=== PATIENT | female | born 1985 | race African-American/Black ===

== ENCOUNTER 2016-05-24 10:13 | Emergency (ER) | payer MEDICAID ==
[~2016-05-24] VITALS: Ht 167.6 cm; Wt 80.0 kg
[~2016-05-24 10:13] MED LIST: CEPH500C3 PO; PROM25TA5 PO; ZOFR4TAB3 SL
[2016-05-24 10:14] VITALS: BP 131/76; PULSE 99; RESP 16; TEMP 98.3; O2SAT 99
[2016-05-24] MEDS ORDERED: IBUP800T23 PO (11:03)
[2016-05-24] MEDS ORDERED: AMOX500T PO (11:03)
[2016-05-24] MEDS ORDERED: MAGICADU2 SWISH-SPIT (11:03)
--- NOTE | 2016-05-24 11:03 | PD ---
HPI Chief Complaint: Cold / Flu Symptoms Time Seen by Provider: 11:01 Travel History International Travel<30 days: No Contact w/Intl Traveler<30days: No Traveled to known affect area: No History of Present Illness HPI 31-year-old female presents to the emergency Department with complaint of sore throat, headache, body aches since yesterday. Denies lump in throat, difficulty swallowing, unusual drooling. Reports painful swallowing. Reports subjective fever yesterday. Has not taken her temperature and cannot reported MAXIMUM TEMPERATURE. Denies cough, ear pain, nasal congestion. Denies nausea, vomiting, abdominal pain. Her children have similar symptoms. Has not taken any medications or tried any treatments to alleviate her symptoms. Received the influenza vaccine this year. No known relieving factors. Denies allergies. Does not know the name of her primary care provider. Denies significant past medical history. No other modifying factors or associated signs and symptoms. PFSH Past Medical History Diminished Hearing: No Immunizations Current: No ?: Not LMP: 04/2016 : 7 Para: 5 : 1 Social History Alcohol Use: No Tobacco Use: No Substance Use: No Allergies-Medications (Allergen,Severity, Reaction): Coded Allergies: No Known Allergies (Unverified , 05/24/16) Reported Meds & Prescriptions Reported Meds & Active Scripts Active Ibuprofen 800 Mg Tab 800 Mg PO Q6HR PRN Amoxicillin 500 Mg Tab 500 Mg PO BID 10 Days Magic Mouthwash Adult Liq (Multi-Ingredient Mouthwash/Gargle) 120 Ml Susp 5 Ml SWISH-SPIT Q3HR PRN Each 5mL contains: Nystatin 200,000units, Diphenhydramine 4.25mg, Viscous Lidocaine 10mg, Corey syrup 0.8 mL Review of Systems Except as stated in HPI: all other systems reviewed are Neg Physical Exam Narrative GENERAL: Well-nourished, well-developed female patient, in no acute distress; afebrile, nontoxic-appearing SKIN: Warm and dry. No rash. HEAD: Atraumatic. Normocephalic. EYES: Pupils equal and round at 3 mm with brisk reaction. No scleral icterus. No injection or drainage. PERRLA. ENT: Mucosa pink and dry. Pharynx with 2+ tonsils; with erythema, exudate, and edema. No Uvular edema. No uvular, palatal, or tonsillar deviation. Airway patent. Voice is hoarse. EARS: Bilateral pinnae and external canals appear within normal limits. Bilateral tympanic membranes without erythema, dullness or perforation.. NECK: Trachea midline. Anterior cervical lymphadenopathy and tenderness. CARDIOVASCULAR: Regular rate and rhythm. No murmur appreciated. RESPIRATORY: No accessory muscle use. Clear to auscultation. Breath sounds equal bilaterally. GASTROINTESTINAL: Abdomen soft, non-tender, nondistended. Hepatic and splenic margins not palpable. Bowel sounds are active 4 quadrants. MUSCULOSKELETAL: No obvious deformities. No clubbing. No cyanosis. No edema. NEUROLOGICAL: Awake and alert. Oriented 3. No obvious cranial nerve deficits. Motor grossly within normal limits. Normal speech. Moves all extremities. PSYCHIATRIC: Appropriate mood and affect; insight and judgment normal. Data Data Last Documented VS Vital Signs Date Time Temp Pulse Resp B/P Pulse Ox O2 Delivery O2 Flow Rate FiO2 05/24/16 10:35 20 05/24/16 10:14 98.3 99 131/76 99 MDM Medical Decision Making Medical Screen Exam Complete: Yes Emergency Medical Condition: Yes Medical Record Reviewed: Yes Differential Diagnosis Strep pharyngitis, viral pharyngitis, less likely peritonsillar abscess Narrative Course 31-year-old female who exam consistent with exudative pharyngitis. Denies lump in throat, difficulty swallowing, unusual drooling. Oropharynx is with erythema , edema, and exudate. Patient will be provided a prescription for amoxicillin and discharged home. I offered the patient a nonnarcotic for pain while in the ER and she declined this time. Amoxicillin, Magic mouthwash, ibuprofen prescribed for home. Patient is medically cleared and stable for discharge. Discussed reasons to return to the emergency department. Instructed patient to follow up with primary care provider. Patient agrees with treatment plan. The patients vital signs are stable and the patient is stable for outpatient follow- up and treatment. Patient discharged home, stable and in no acute distress. Diagnosis Primary Impression: Exudative pharyngitis Referrals: Primary Care Physician Patient Instructions: General Instructions, Pharyngitis (ED) Departure Forms: Tests/Procedures, Work Release Enter return to work date: May 26, 2016 Additional Instructions: Take Antibiotics as prescribed and complete full course of antibiotics Get plenty of sleep/rest Rest your voice Drink plenty of fluids to prevent dehydration Use warm saltwater gargles to soothe throat pain Use an air humidifier/turn off ceiling fans Use throat lozenges as needed for sore throat Use ibuprofen or acetaminophen as needed to relieve pain and fever Follow-up with your primary care provider within 2-4 days Return immediately to the emergency department immediately with worsening of symptoms Med/Other Pt SpecificInfo: Prescription(s) given Scripts Ibuprofen 800 Mg [id number] Mg PO Q6HR PRN (PAIN) #30 TAB Ref 0 Prov:Charla Camacho 05/24/16 Amoxicillin 500 Mg [id number] Mg PO BID 10 Days Ref 0 Prov:Charla Camacho 05/24/16 Micfozio-Uwwiujgingdpoks-Uveqmxtyd Liq (Magic Mouthwash Adult Liq)120 Ml Susp5 Ml SWISH-SPIT Q3HR PRN (SORE THROAT) #120 ML Ref 0 Each 5mL contains: Nystatin 200,000units, Diphenhydramine 4.25mg, Viscous Lidocaine 10mg, Corey syrup 0.8 mL Prov:Charla Camacho 05/24/16 Disposition: 01 DISCHARGE HOME Condition: Stable Charla Camacho May 24, 2016 11:03
[2016-05-25] MEDS ORDERED: PRED20 PO (06:38)
== END 2016-05-24 11:45 | disposition home or self-care (01) ==
LOC: NEPB 10:13
DX: J02.9 Acute pharyngitis, unspecified (principal); R51 Headache; M79.1 Myalgia
CPT/HCPCS: 99283

== ENCOUNTER 2016-05-25 05:33 | Emergency (ER) | payer MEDICAID, OTHER ==
[~2016-05-25] VITALS: Ht 167.6 cm; Wt 80.0 kg
[~2016-05-25 05:33] MED LIST changes: +AMOX500T PO; +IBUP800T23 PO; +MAGICADU2 SWISH-SPIT
[2016-05-25 05:34] VITALS: BP 135/89; PULSE 110; RESP 20; TEMP 98.5; O2SAT 92
[2016-05-25] MEDS ORDERED: SODIUM CHLOR 0.9% 1000 ML INJ 1,000 ML IV SCH (05:45)
[2016-05-25] MEDS ORDERED: KETOROLAC TROMETHAMINE 30 MG/ML (IVP) VIAL IV PUSH ONE (05:45)
[2016-05-25] MEDS ORDERED: DEXAMETHASONE SOD PHOS 4 MG/ML VIAL IV PUSH ONE (05:45)
--- NOTE | 2016-05-25 05:53 | PD ---
HPI Chief Complaint: ENT Complaint Time Seen by Provider: 05:40 Travel History International Travel<30 days: No Contact w/Intl Traveler<30days: No Traveled to known affect area: No History of Present Illness HPI 31-year-old female presents for evaluation of worsening sore throat. She's had a sore throat, chills and myalgias for 2 days. She was seen here yesterday and diagnosed with exudative pharyngitis. She was given prescriptions for amoxicillin, Magic mouthwash and ibuprofen. She using amoxicillin twice yesterday. She woke up this morning with worsening sore throat, difficulty swallowing. She has persistent chills and myalgias. Denies nausea or vomiting , cough or congestion, rash or recent travel. No sick contacts. No significant past medical history. No other complaints. PFSH Past Medical History Diminished Hearing: No Immunizations Current: No : 7 Para: 5 : 1 Social History Alcohol Use: No Tobacco Use: No Substance Use: No Allergies-Medications (Allergen,Severity, Reaction): Coded Allergies: No Known Allergies (Unverified , 05/25/16) Reported Meds & Prescriptions Reported Meds & Active Scripts Active Prednisone 20 Mg Tab 20 Mg PO BID 5 Days Ibuprofen 800 Mg Tab 800 Mg PO Q6HR PRN Amoxicillin 500 Mg Tab 500 Mg PO BID 10 Days Magic Mouthwash Adult Liq (Multi-Ingredient Mouthwash/Gargle) 120 Ml Susp 5 Ml SWISH-SPIT Q3HR PRN Each 5mL contains: Nystatin 200,000units, Diphenhydramine 4.25mg, Viscous Lidocaine 10mg, Corey syrup 0.8 mL Review of Systems Except as stated in HPI: all other systems reviewed are Neg Physical Exam Narrative GENERAL: Well-developed well-nourished female in no acute distress. Her voice is somewhat muffled. There is no stridor or drooling. SKIN: Warm and dry. HEAD: Atraumatic. Normocephalic. EYES: Pupils equal and round. No scleral icterus. No injection or drainage. ENT: No nasal bleeding or discharge. Mucous membranes pink and moist. There is tonsillar edema, erythema and hypertrophy bilaterally with some exudate formation. Uvula midline with no mass effect. NECK: Trachea midline. No JVD. Mild tender anterior cervical lymphadenopathy. No submandibular swelling. CARDIOVASCULAR: Regular rate and rhythm. No murmur appreciated. RESPIRATORY: No accessory muscle use. Clear to auscultation. Breath sounds equal bilaterally. GASTROINTESTINAL: Abdomen soft, non-tender, nondistended. Hepatic and splenic margins not palpable. Data Data Last Documented VS Vital Signs Date Time Temp Pulse Resp B/P Pulse Ox O2 Delivery O2 Flow Rate FiO2 05/25/16 05:34 98.5 110 20 135/89 92 Orders Iv Access Insert/Monitor (05/25/16 05:45) Complete Blood Count With Diff (05/25/16 05:45) Basic Metabolic Panel (Bmp) (05/25/16 05:45) Monoscreen (05/25/16 05:45) Sodium Chlor 0.9% 1000 Ml Inj (Ns 1000 M (05/25/16 05:45) Ketorolac Inj (Toradol Inj) (05/25/16 05:45) Dexamethasone Inj (Decadron Inj) (05/25/16 05:45) Group A Rapid Strep Screen (05/25/16 05:45) Labs Laboratory Tests Test 05/25/16 06:10 White Blood Count 15.2 TH/MM3 Red Blood Count 4.42 MIL/MM3 Hemoglobin 13.0 GM/DL Hematocrit 38.1 % Mean Corpuscular Volume 86.2 FL Mean Corpuscular Hemoglobin 29.5 PG Mean Corpuscular Hemoglobin 34.2 % Concent Red Cell Distribution Width 13.4 % Platelet Count 272 TH/MM3 Mean Platelet Volume 7.4 FL Neutrophils (%) (Auto) 79.1 % Lymphocytes (%) (Auto) 12.5 % Monocytes (%) (Auto) 8.0 % Eosinophils (%) (Auto) 0.1 % Basophils (%) (Auto) 0.3 % Neutrophils # (Auto) 12.1 TH/MM3 Lymphocytes # (Auto) 1.9 TH/MM3 Monocytes # (Auto) 1.2 TH/MM3 Eosinophils # (Auto) 0.0 TH/MM3 Basophils # (Auto) 0.0 TH/MM3 CBC Comment DIFF FINAL Differential Comment Sodium Level 138 MEQ/L Potassium Level 3.3 MEQ/L Chloride Level 106 MEQ/L Carbon Dioxide Level 19.5 MEQ/L Anion Gap 13 MEQ/L Blood Urea Nitrogen 6 MG/DL Creatinine 0.58 MG/DL Estimat Glomerular Filtration 147 ML/MIN Rate Random Glucose 104 MG/DL Calcium Level 8.8 MG/DL Monoscreen NEG MDM Medical Decision Making Medical Screen Exam Complete: Yes Emergency Medical Condition: Yes Medical Record Reviewed: Yes Interpretation(s) CBC WBC 15.2 [place] screen negative Positive rapid strep screen BMP potassium 3.3 otherwise unremarkable Differential Diagnosis Tonsillitis, exudative pharyngitis, peritonsillar abscess, infectious mononucleosis, herpangina, epiglottitis, retropharyngeal abscess Narrative Course 31-year-old female with 2 days of sore throat, chills and myalgias. Sore throat worsened this morning, she was started on amoxicillin yesterday. On examination she has tonsillar hypertrophy, edema and exudate bilaterally with no evidence of a peritonsillar abscess or retropharyngeal abscess. She is also mildly tachycardic. The patient will be given IV Decadron, Toradol and IV fluids for symptom relief. A mono screen and a rapid strep screen as well as a CBC and BMP will be performed. The patient will be monitored closely. Upon reexamination the patient feels significantly improved. Her strep screen is positive. The patient will be discharged and advised to continue the amoxicillin. She'll be discharged with a prescription for prednisone. Diagnosis Primary Impression: Exudative pharyngitis Additional Instructions: Medication as prescribed. Prednisone as prescribed. Stay well hydrated well- nourished. Get plenty of rest. Return for any new or worsening symptoms. Med/Other Pt SpecificInfo: Prescription(s) given Scripts Prednisone 20 Mg Tab20 Mg PO BID 5 Days Ref 0 Prov:Ena Bear MD 05/25/16 Disposition: 01 DISCHARGE HOME Condition: Stable Lauri Storm May 25, 2016 05:53
[2016-05-25 06:19] LABS: AUTOMATED NEUTROPHIL # 12.1 TH/MM3 (1.8-7.7); BASOPHIL % 0.3 % (0.0-2.0); EOSINOPHIL % 0.1 % (0.0-4.0); HEMATOCRIT 38.1 % (35.0-46.0); HEMO FLAGS DIFF FINAL; LYMPH % 12.5 % (9.0-44.0); LYMPHOCYTE # 1.9 TH/MM3 (1.0-4.8); MEAN CELL VOLUME 86.2 FL (80.0-100.0); MEAN CORPUSCULAR HEMOGLOBIN 29.5 PG (27.0-34.0); MEAN CORPUSCULAR HGB CONC 34.2 % (32.0-36.0); NEUT % 79.1 % (16.0-70.0); PLATELET COUNT 272 TH/MM3 (150-450); RED BLOOD COUNT 4.42 MIL/MM3 (4.00-5.30); RED CELL DISTRIBUTION WIDTH 13.4 % (11.6-17.2); WHITE BLOOD COUNT 15.2 TH/MM3 (4.0-11.0)
[2016-05-25] MEDS ORDERED: PRED20 PO (06:38)
[2016-05-25 06:40] LABS: BICARBONATE 19.5 MEQ/L (21.0-32.0); POTASSIUM 3.3 MEQ/L (3.5-5.1)
[2016-05-25] MEDS ORDERED: POTASSIUM CHLORIDE 20 MEQ CONTROLLED RELEASE TAB PO ONE (06:45)
== END 2016-05-25 07:43 | disposition home or self-care (01) ==
LOC: NEPB 05:33
DX: J02.9 Acute pharyngitis, unspecified (principal); R13.10 Dysphagia, unspecified; B95.0 Streptococcus, group A, as the cause of diseases classified elsewhere
CPT/HCPCS: 80048; 85025; 86308; 87880; 96361; 96374; 96375; 99283; J1100; J1885; J7030

== ENCOUNTER 2017-03-01 20:56 | Emergency (ER) | payer OTHER, MEDICAID ==
[~2017-03-01 20:56] MED LIST changes: -CEPH500C3 PO; +IBUP1TAB7 PO; -IBUP800T23 PO; +PRED20 PO; -PROM25TA5 PO; -ZOFR4TAB3 SL
[2017-03-01 20:57] VITALS: BP 118/79; PULSE 66; RESP 16; TEMP 98.4; O2SAT 100
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
[2017-03-01] MEDS ORDERED: NAPR500 PO (23:32)
[2017-03-01] MEDS ORDERED: CYCL10TA PO (23:32)
== END 2017-03-01 23:39 | disposition home or self-care (01) ==
LOC: NEPK 20:56
DX: S06.9X9A Unspecified intracranial injury with loss of consciousness of unspecified duration, initial encounter (principal); S80.02XA Contusion of left knee, initial encounter; S16.1XXA Strain of muscle, fascia and tendon at neck level, initial encounter; J32.0 Chronic maxillary sinusitis; V49.49XA Driver injured in collision with other motor vehicles in traffic accident, initial encounter; Y92.410 Unspecified street and highway as the place of occurrence of the external cause
CPT/HCPCS: 70450; 71010; 72125; 73564; 84703